=== PATIENT | female | born 1975 | race Caucasian/White ===

== ENCOUNTER 2016-05-31 19:27 | Emergency (ER) | payer OTHER ==
[~2016-05-31] VITALS: Ht 165.1 cm; Wt 80.0 kg
[~2016-05-31 19:27] MED LIST: IBUP-232 PO; LISI40TA PO; MIRT30TA PO; TRIL150T PO; ZOLO25TA PO
[2016-05-31 19:34] VITALS: BP 159/113; PULSE 91; O2SAT 95
[2016-05-31] MEDS ORDERED: SERT-129 PO (19:42)
[2016-05-31] MEDS ORDERED: MORPHINE SULFATE 4 MG/ML INJ IV PUSH ONE (19:45)
[2016-05-31] MEDS ORDERED: SODIUM CHLORID 0.9% 500 ML INJ 500 ML IV ONE (19:45)
[2016-05-31] MEDS ORDERED: SODIUM CHLORIDE 0.9% FLUSH 5 ML FLUSH IVF PRN (19:45)
[2016-05-31] MEDS ORDERED: ASPIRIN 325 MG TAB PO ONE (19:45)
[2016-05-31 19:53] LABS: BASOPHIL # 0.4 TH/MM3 (0-0.2); BASOPHIL % 2.8 % (0.0-2.0); EOSINOPHIL # 0.3 TH/MM3 (0-0.4); EOSINOPHIL % 2.2 % (0.0-4.0); HEMATOCRIT 42.9 % (35.0-46.0); HEMO FLAGS DIFF FINAL; LYMPH % 17.6 % (9.0-44.0); LYMPHOCYTE # 2.3 TH/MM3 (1.0-4.8); MEAN CORPUSCULAR HGB CONC 33.8 % (32.0-36.0); MONO % 6.8 % (0.0-8.0); NEUT % 70.6 % (16.0-70.0); PLATELET COUNT 364 TH/MM3 (150-450); RED BLOOD COUNT 4.67 MIL/MM3 (4.00-5.30); RED CELL DISTRIBUTION WIDTH 13.1 % (11.6-17.2); WHITE BLOOD COUNT 12.9 TH/MM3 (4.0-11.0)
[2016-05-31] MEDS: NITROGLYCERIN 0.4 MG SL 25 TABS/BTL SL SCH ×3 (19:54→20:12)
[2016-05-31 19:58] VITALS: BP 148/91; PULSE 96; O2SAT 99
--- NOTE | 2016-05-31 20:04 | PD ---
HPI Chief Complaint: Chest Pain Time Seen by Provider: 19:37 Travel History International Travel<30 days: No Contact w/Intl Traveler<30days: No Traveled to known affect area: No History of Present Illness HPI 41-year-old female arrives to the ER with chest pain. It's retrosternal and sharp. She states it's 10 over 10. She has bilateral upper extremity paresthesias. Dyspnea is reported. Pleuritic pain is reported. Onset occurred when she was driving her car. She reports a history of hypertension. She has no family history of early onset coronary artery disease. She has no history of diabetes or hyperlipidemia. She has been compliant with lisinopril, Trileptal, Zoloft and Remeron for her mood disorder/anxiety disorder and hypertension. She denies past surgical history. She denies recent fever. She reports a nonproductive cough. She smokes tobacco. She reports she spent the day at the park with her kids, normal activity for her. She reports minimal personal stress having taken her niece to the hospital today. She reports a history of panic attack previously however states today's presentation feels different. She reports dyspnea at rest. ON LICENSE OF [facility] Past Medical History Anxiety: Yes Depression: Yes Diminished Hearing: No Hypertension: Yes (NON COMPLIANT WITH MEDS "NO DR.") Musculoskeletal: Yes (HX OF CHRONIC BACK PAIN) Immunizations Current: Yes Influenza Vaccination: No ?: Not LMP: 05/16/2016 : 2 Para: 2 Past Surgical History Ear Surgery: Yes (TUBES) Social History Alcohol Use: No Tobacco Use: Yes (1PPD) Substance Use: No Allergies-Medications (Allergen,Severity, Reaction): Coded Allergies: No Known Allergies (Verified , 05/31/16) Reported Meds & Prescriptions Reported Meds & Active Scripts Active Azithromycin 250 Mg Tab 250 Mg PO DIRECTED Take 2 tabs (500 mg) on day 1 then 1 tab daily x 4 days. Prednisone 20 Mg Tab 40 Mg PO DAILY 4 Days Take 40 mg (2 tablets) daily for 5 days Lisinopril 40 Mg Tab 40 Mg PO DAILY Reported Sertraline (Sertraline HCl) 100 Mg Tab 100 Mg PO DAILY Mirtazapine 30 Mg Tab 30 Mg PO HS Trileptal (Oxcarbazepine) 150 Mg Tab 150 Mg PO BID Review of Systems Except as stated in HPI: all other systems reviewed are Neg General / Constitutional: No: Fever Cardiovascular: Positive: Chest Pain or Discomfort, No: Diaphoresis Respiratory: Positive: Cough, Shortness of Breath Psychiatric: No: Substance Abuse Physical Exam Narrative GENERAL: Well-nourished well-developed 41-year-old female mild distress due to pain and/or anxiety SKIN: Warm and dry. HEAD: Atraumatic. Normocephalic. EYES: Pupils equal and round. No scleral icterus. No injection or drainage. ENT: No nasal bleeding or discharge. Mucous membranes pink and moist. NECK: Trachea midline. No JVD. CARDIOVASCULAR: Tachycardia at a rate of about 95. Regular. RESPIRATORY: Minimal tachypnea. Lungs are clear bilaterally. GASTROINTESTINAL: Abdomen soft, non-tender, nondistended. Hepatic and splenic margins not palpable. MUSCULOSKELETAL: No obvious deformities. No clubbing. No cyanosis. No edema. No evidence DVT. NEUROLOGICAL: Awake and alert. No obvious cranial nerve deficits. Motor grossly within normal limits. Normal speech. PSYCHIATRIC: Mildly anxious. Cooperative. Data Data Last Documented VS Vital Signs Date Time Temp Pulse Resp B/P Pulse Ox O2 Delivery O2 Flow Rate FiO2 05/31/16 21:47 78 18 155/86 100 Room Air 05/31/16 20:38 2 05/31/16 20:29 98.6 Orders Electrocardiogram (05/31/16 19:38) Basic Metabolic Panel (Bmp) (05/31/16 19:38) Ckmb (Isoenzyme) Profile (05/31/16 19:38) Complete Blood Count With Diff (05/31/16 19:38) Magnesium (Mg) (05/31/16 19:38) Prothrombin Time / Inr (Pt) (05/31/16 19:38) Act Partial Throm Time (Ptt) (05/31/16 19:38) Troponin I (05/31/16 19:38) Chest, Single Ap (05/31/16 19:38) Ecg Monitoring (05/31/16 19:38) Bilateral Bp Monitoring (05/31/16 19:38) Iv Access Insert/Monitor (05/31/16 19:38) Oximetry (05/31/16 19:38) Oxygen Administration (05/31/16 19:38) Aspirin (Aspirin) (05/31/16 19:45) Morphine Inj (Morphine Inj) (05/31/16 19:45) Sodium Chloride 0.9% Flush (Ns Flush) (05/31/16 19:45) Nitroglycerin Sl (Nitrostat Sl) (05/31/16 19:45) Sodium Chlorid 0.9% 500 Ml Inj (Ns 500 M (05/31/16 19:45) Ct Pulmonary Angiogram (05/31/16 19:38) Potassium Chloride (Kcl) (05/31/16 20:30) Iohexol 350 Inj (Omnipaque 350 Inj) (05/31/16 21:30) Troponin I (05/31/16 21:51) Methylprednisolone So Succ Inj (Solumedr (05/31/16 22:00) Albuterol Hfa Inh (Proair Hfa Inh) (05/31/16 22:00) Labs Laboratory Tests Test 05/31/16 05/31/16 19:35 21:53 White Blood Count 12.9 TH/MM3 Red Blood Count 4.67 MIL/MM3 Hemoglobin 14.5 GM/DL Hematocrit 42.9 % Mean Corpuscular Volume 92.0 FL Mean Corpuscular Hemoglobin 31.0 PG Mean Corpuscular Hemoglobin 33.8 % Concent Red Cell Distribution Width 13.1 % Platelet Count 364 TH/MM3 Mean Platelet Volume 8.8 FL Neutrophils (%) (Auto) 70.6 % Lymphocytes (%) (Auto) 17.6 % Monocytes (%) (Auto) 6.8 % Eosinophils (%) (Auto) 2.2 % Basophils (%) (Auto) 2.8 % Neutrophils # (Auto) 9.0 TH/MM3 Lymphocytes # (Auto) 2.3 TH/MM3 Monocytes # (Auto) 0.9 TH/MM3 Eosinophils # (Auto) 0.3 TH/MM3 Basophils # (Auto) 0.4 TH/MM3 CBC Comment DIFF FINAL Differential Comment Prothrombin Time 10.5 SEC Prothromb Time International 1.0 RATIO Ratio Activated Partial 27.2 SEC Thromboplast Time Sodium Level 138 MEQ/L Potassium Level 3.1 MEQ/L Chloride Level 104 MEQ/L Carbon Dioxide Level 22.5 MEQ/L Anion Gap 12 MEQ/L Blood Urea Nitrogen 9 MG/DL Creatinine 0.79 MG/DL Estimat Glomerular Filtration 81 ML/MIN Rate Random Glucose 108 MG/DL Calcium Level 9.0 MG/DL Magnesium Level 2.0 MG/DL Total Creatine Kinase 28 U/L Troponin I LESS THAN 0.02 LESS THAN 0.02 NG/ML NG/ML MDM Medical Decision Making Medical Screen Exam Complete: Yes Emergency Medical Condition: Yes Medical Record Reviewed: Yes Differential Diagnosis NSTEMI, unstable angina, coronary vasospasm, PE, PTX, aortic dissection, pericarditis, myocarditis, endocarditis, PNA, esophageal disease, aneurysm, musculoskeletal etiologies, anxiety, cocaine/sympathomimetic abuse Narrative Course EKG reveals a sinus rhythm of 87 bpm with normal axis intervals, no ischemic injury type pattern CBC & BMP Diagram 05/31/16 19:35 Tn < 0.02 INR 1.0 Reassessment at 9:56 PM patient reports persistent shortness of breath and chest pain. Albuterol and methylprednisolone ordered. We'll discharge with Azithromycin. Potassium replenished. 2 hour repeat troponin is undetectable in this 41 yo F. No coronary calcification on CT images. She smokes however carries no significant risk factor otherwise for occlusive coronary disease. In this scenario discharge home with a plan for outpatient follow-up with provocative testing as needed is considered not unreasonable. We discussed the ground glass opacity in the right lung on CT. The patient understands that could be a malignancy and that a repeat CT in 3 months is required in order to rule out cancer. She has verbalized agreement to obtain a repeat CT chest in 3 months. Diagnosis Primary Impression: Chest pain Qualified Code: R07.9 - Chest pain, unspecified type Additional Impressions: Dyspnea Qualified Code: R06.09 - Dyspnea on exertion Ground glass opacity present on imaging of lung Hypokalemia Referrals: OBTAIN REPEAT CHEST CT IN 3 MONTHS call for appointment Additional Instructions: You have a choice when it comes to health care, and we are glad that you chose [facility]. Hopefully, we have met your expectations on today's visit. You are welcome to return to [facility] at any time, as we are committed to meeting the health care needs of our community. Med/Other Pt SpecificInfo: Prescription(s) given Scripts Azithromycin 250 Mg [id number] Mg PO DIRECTED #6 TAB Ref 0 Take 2 tabs (500 mg) on day 1 then 1 tab daily x 4 days. Prov:Twin Jansen MD 05/31/16 Prednisone 20 Mg Tab40 Mg PO DAILY 4 Days Ref 0 Take 40 mg (2 tablets) daily for 5 days Prov:Twin Jansen MD 05/31/16 Disposition: 01 DISCHARGE HOME Condition: Stable Twin Jansen MD May 31, 2016 20:04
[2016-05-31 20:08] LABS: CHLORIDE 104 MEQ/L (98-107); POTASSIUM 3.1 MEQ/L (3.5-5.1); SODIUM (NA) 138 MEQ/L (136-145)
[2016-05-31 20:10] VITALS: BP 145/85; PULSE 85; O2SAT 96
[2016-05-31 20:12] LABS: ANION GAP 12 MEQ/L (5-15); BICARBONATE 22.5 MEQ/L (21.0-32.0); BLOOD UREA NITROGEN 9 MG/DL (7-18)
--- NOTE | 2016-05-31 20:12 | RADHPO ---
EXAM DATE/TIME: 05/31/2016 19:58 [facility] COMPARISON: CHEST SINGLE AP, May 10, 2015, 22:51. INDICATIONS : Shortness of breath. MEDICAL HISTORY : Hypertension. SURGICAL HISTORY : None. ENCOUNTER: Initial ACUITY: 1 day PAIN SCORE: 0/10 LOCATION: Bilateral chest FINDINGS: A single view of the chest demonstrates the lungs to be symmetrically aerated without evidence of mas s, infiltrate or effusion. The cardiomediastinal contours are unremarkable. Osseous structures are intact. CONCLUSION: No evidence of acute cardiopulmonary disease. Babar Bonds MD on May 31, 2016 at 20:10 Board Certified Radiologist. This report was verified electronically.
[2016-05-31 20:14] LABS: APTT (PATIENT) 27.2 SEC (24.3-30.1); PROTHROMBIN TIME - PATIENT 10.5 SEC (9.8-11.6)
[2016-05-31 20:15] LABS: GLOMERULAR FILTRATION RATE 81 ML/MIN (>89)
[2016-05-31 20:29] VITALS: TEMP 98.6
[2016-05-31] MEDS ORDERED: POTASSIUM CHLORIDE 20 MEQ CONTROLLED RELEASE TAB PO ONE (20:30)
[2016-05-31 20:33] LABS: CREATINE KINASE 28 U/L (26-192)
[2016-05-31 20:38] VITALS: BP 155/91; PULSE 83; RESP 16; O2SAT 99
[2016-05-31] MEDS ORDERED: IOHEXOL 350 MG/ML 10 ML VIAL (for RAD DIAG) IV ONE (21:30)
--- NOTE | 2016-05-31 21:39 | RADHPO ---
EXAM DATE/TIME: 05/31/2016 21:11 [facility] COMPARISON: No previous studies available for comparison. INDICATIONS : Left chest pain. Evaluate for embolism. IV CONTRAST: 75 cc Omnipaque 350 (iohexol) IV RADIATION DOSE: 17.86 CTDIvol (mGy) MEDICAL HISTORY : Hypertension. SURGICAL HISTORY : None. ENCOUNTER: Initial ACUITY: 1 day PAIN SCALE: 8/10 LOCATION: Left chest TECHNIQUE: Volumetric scanning of the chest was performed using a pulmonary embolism protocol MIP images were re constructed. Using automated exposure control and adjustment of the mA and/or kV according to patien t size, radiation dose was kept as low as reasonably achievable to obtain optimal diagnostic quality images. FINDINGS: PULMONARY ARTERIES: No filling defects are seen in the pulmonary arteries through the segmental level. LUNGS: 3 cm focal infiltrates seen in the anterior segment of the right upper lobe. Lungs are otherwise chasity r. PLEURAE: There is no pleural thickening or pleural effusion. MEDIASTINUM: There is good visualization of the great vessels of the middle mediastinum. No evidence of mediastin al or hilar adenopathy/mass. MUSCULOSKELETAL: Within normal limits for patient age. MISCELLANEOUS: The visualized upper abdominal organs demonstrate no acute abnormality. CONCLUSION: 1. No pulmonary embolus demonstrated. 2. Focal groundglass infiltrate of the right upper lobe, nonspecific but most likely infectious or in flammatory. A followup noncontrast chest CT is recommended in 4-6 months to confirm resolution. Babar Bonds MD on May 31, 2016 at 21:36 Board Certified Radiologist. This report was verified electronically.
[2016-05-31 21:47] VITALS: BP 155/86; PULSE 78; RESP 18; O2SAT 100
[2016-05-31] MEDS ORDERED: PRED20 PO (22:00)
[2016-05-31] MEDS ORDERED: AZIT250T3 PO (22:00)
[2016-05-31] MEDS ORDERED: methylPREDNISolone SOD SUCC 125 MG/2 ML VIAL IV PUSH ONE (22:00)
[2016-05-31] MEDS ORDERED: ALBUTEROL SULFATE 90 MCG/ACT HFA 8 GM INHALER INH ONE (22:00)
--- NOTE | 2016-06-01 15:50 | EKG ---
Date Performed: 05/31/2016 Time Performed: 19:30:46 PTAGE: 41 years EKG: Sinus rhythm . Normal ECG PREVIOUS TRACING : 05/10/2015 22.59 Compared to prior tracing no significant change DOCTOR: Tiffanie Ricardo Interpretating Date/Time 06/01/2016 15:48:54
[2016-07-23] MEDS ORDERED: LISI40TA PO (12:40)
[2016-08-27] MEDS ORDERED: LISI40TA PO (11:14)
[2016-08-27] MEDS ORDERED: AMLO5TAB2 PO (11:14)
== END 2016-05-31 22:44 | disposition home or self-care (01) ==
LOC: PHED 19:27
DX: R07.9 Chest pain, unspecified (principal); R06.09 Other forms of dyspnea; E87.6 Hypokalemia
CPT/HCPCS: 71010; 71275; 80048; 82550; 83735; 84484; 85025; 85610; 85730; 93005; 96361; 96374; 96375; 99285; J2270; J2930; J7040; Q9967

== ENCOUNTER 2016-06-12 15:30 | Emergency (ER) | payer OTHER ==
[~2016-06-12 15:30] MED LIST changes: +AZIT250T3 PO; -IBUP-232 PO; +PRED20 PO; +SERT-129 PO; -ZOLO25TA PO
[2016-06-12 15:31] VITALS: BP 134/100; PULSE 97; RESP 18; TEMP 98.2; O2SAT 99
[2016-07-23] MEDS ORDERED: LISI40TA PO (12:40)
[2016-08-27] MEDS ORDERED: AMLO5TAB2 PO (11:14)
[2016-08-27] MEDS ORDERED: LISI40TA PO (11:14)
== END 2016-06-12 18:06 | disposition left against medical advice (07) ==
LOC: NETRI 15:30
DX: Z03.89 Encounter for observation for other suspected diseases and conditions ruled out (principal)
CPT/HCPCS: 99281

== ENCOUNTER 2016-07-10 10:42 | Emergency (ER) | payer OTHER ==
[~2016-07-10] VITALS: Ht 165.1 cm; Wt 75.2 kg
[2016-07-10 10:44] VITALS: BP 173/121; PULSE 74; RESP 18; TEMP 98.2; O2SAT 97
[2016-07-10] MEDS ORDERED: ZOLO25TA PO (10:54)
[2016-07-10] MEDS ORDERED: [UNRECOGNIZED DRUG - OTHER] (10:54)
--- NOTE | 2016-07-10 11:00 | PD ---
HPI Chief Complaint: Musculoskeletal Complaint Time Seen by Provider: 10:56 Travel History International Travel<30 days: No Contact w/Intl Traveler<30days: No Traveled to known affect area: No History of Present Illness HPI The patient is a 41-year-old female who presents emergency department for right hand pain. The patient states she was aggravated 2 days ago punched a wall. She now complains of pain located over the fourth and fifth metacarpal of the right hand. The patient is right-hand dominant. The pain is worse with movement, slightly alleviated at rest. She denies any difficulty using the right upper extremity, is able flex and extend the digits of the right hand with minimal pain. She denies any history of previous fracture to the affected area. She denies any associated numbness, tingling, or paresthesias to the right hand. PFSH Past Medical History Anxiety: Yes Depression: Yes Cardiovascular Problems: Yes (HTN) Diminished Hearing: No Hypertension: Yes (NON COMPLIANT WITH MEDS "NO DR.") Musculoskeletal: Yes (HX OF CHRONIC BACK PAIN) Immunizations Current: Yes Tetanus Vaccination: Unknown ?: Not LMP: NOW : 2 Para: 2 Past Surgical History Surgical History: No Previous Surgery Ear Surgery: Yes (TUBES) Social History Alcohol Use: Yes (OCC) Tobacco Use: Yes (1PPD) Substance Use: No Allergies-Medications (Allergen,Severity, Reaction): Coded Allergies: No Known Allergies (Verified , 07/10/16) Reported Meds & Prescriptions Reported Meds & Active Scripts Active Lisinopril 40 Mg Tab 40 Mg PO DAILY Reported [Remuron] Zoloft (Sertraline HCl) 25 Mg Tab 25 Mg PO DAILY Mirtazapine 30 Mg Tab 30 Mg PO HS Trileptal (Oxcarbazepine) 150 Mg Tab 150 Mg PO BID Review of Systems Except as stated in HPI: all other systems reviewed are Neg Musculoskeletal: Positive: Edema, Pain Skin: No Other (denies any laceration of the affected area) Neurologic: No: Paresthesia, Sensory Disturbance Physical Exam Narrative GENERAL: Awake, alert, 41-year-old female who appears her stated age and is in no acute respiratory distress. SKIN: Focused skin assessment warm/dry. HEAD: Atraumatic. Normocephalic. EYES: No injection or drainage. MUSCULOSKELETAL: The patient has mild edema located over the fourth and fifth metacarpal right hand with ecchymosis noted. The patient is able flex and extend at the MCP, PIP, DIP of digits 2 through 5. The patient is able flex and extend the right wrist as well as supinate and pronate. Patient has full flexion and extension her right elbow. Mild tenderness over the distal one half of the fourth and fifth metacarpal. Positive right radial pulse. NEUROLOGICAL: Awake and alert. No obvious cranial nerve deficits. Motor grossly within normal limits. Normal speech. Sensation is intact to the radial , median, and ulnar distribution of the right hand. PSYCHIATRIC: Appropriate mood and affect; insight and judgment normal. Data Data Last Documented VS Vital Signs Date Time Temp Pulse Resp B/P Pulse Ox O2 Delivery O2 Flow Rate FiO2 07/10/16 10:44 98.2 74 18 173/121 97 Orders Hand, Limited (2vws) (07/10/16 ) [facility] Medical Decision Making Medical Screen Exam Complete: Yes Emergency Medical Condition: Yes Medical Record Reviewed: Yes Interpretation(s) X-ray of the right hand reveals limited 2 view study demonstrating soft tissue swelling but no visualized fracture. Differential Diagnosis Differential diagnosis includes fracture, contusion, dislocation, hematoma. Narrative Course X-ray of the right hand was obtained. X-rays negative for fracture, there is soft tissue swelling. The patient is advised elevate, ice, and ibuprofen and/ or Tylenol as needed for pain. Diagnosis Primary Impression: Contusion of right hand Qualified Code: S60.221A - Contusion of right hand, initial encounter Patient Instructions: General Instructions Additional Instructions: Elevate, ice, activity as tolerated. Ibuprofen and/or Tylenol as needed for pain. Follow-up with her primary physician. Follow-up with hand surgery/ orthopedics if symptoms persist. Med/Other Pt SpecificInfo: No Change to Meds Disposition: 01 DISCHARGE HOME Condition: Stable Emigdio Watson MD Jul 10, 2016 11:00
--- NOTE | 2016-07-10 11:20 | RADHPO ---
EXAM DATE/TIME: 07/10/2016 10:55 [facility] COMPARISON: No previous studies available for comparison. INDICATIONS : Right hand pain; hand injury from punching. MEDICAL HISTORY : None. SURGICAL HISTORY : None. ENCOUNTER: Initial ACUITY: 2 days PAIN SCORE: 10/10 LOCATION: Right 4th & 5th digit; hand. FINDINGS: Limited AP and lateral views of the right hand were obtained and not a standard 3 view trauma series limiting the sensitivity. There is soft tissue swelling over the dorsum of the hand with no acute fra cture or malalignment. The metacarpals and phalanges are projected over each other on the lateral jax dy limiting visualization. CONCLUSION: Limited two-view study demonstrating soft tissue swelling with no visualized fracture . Rocco Tinsley MD on July 10, 2016 at 11:12 Board Certified Radiologist. This report was verified electronically.
[2016-07-23] MEDS ORDERED: LISI40TA PO (12:40)
[2016-08-27] MEDS ORDERED: LISI40TA PO (11:14)
[2016-08-27] MEDS ORDERED: AMLO5TAB2 PO (11:14)
== END 2016-07-10 11:45 | disposition home or self-care (01) ==
LOC: PHEFT 10:42
DX: S60.221A Contusion of right hand, initial encounter (principal); I10 Essential (primary) hypertension; Z91.14 Patient's other noncompliance with medication regimen; G89.29 Other chronic pain; F17.210 Nicotine dependence, cigarettes, uncomplicated; W22.8XXA Striking against or struck by other objects, initial encounter; Y93.89 Activity, other specified; Y92.9 Unspecified place or not applicable
CPT/HCPCS: 73120; 99283

== ENCOUNTER 2016-11-05 12:28 | Emergency (ER) | payer OTHER ==
[~2016-11-05] VITALS: Ht 165.1 cm; Wt 71.0 kg
[~2016-11-05 12:28] MED LIST changes: +AMLO5TAB2 PO; -AZIT250T3 PO; -PRED20 PO; -SERT-129 PO; +ZOLO25TA PO; +[UNRECOGNIZED DRUG - OTHER]
[2016-11-05 12:44] VITALS: BP 147/83; PULSE 97; RESP 16; TEMP 98.3; O2SAT 98
[2016-11-05] MEDS ORDERED: ZYPR10TA PO (13:03)
[2016-11-05] MEDS ORDERED: VIST25CA PO (13:04)
[2016-11-05] MEDS ORDERED: FLUO40CA PO (13:04)
[2016-11-05] MEDS ORDERED: LIDOCAINE HCL 1% 50 ML VIAL INFIL ONE (13:15)
[2016-11-05] MEDS ORDERED: BUPIVACAINE HCL PF 0.5% 10 ML VIAL INFIL ONE (13:15)
--- NOTE | 2016-11-05 13:18 | PD ---
HPI Chief Complaint: Skin Problem Time Seen by Provider: 13:06 Travel History International Travel<30 days: No Contact w/Intl Traveler<30days: No Traveled to known affect area: No History of Present Illness HPI 41-year-old female presents to the emergency room for evaluation of left second digit finger pain and swelling for the past 2 days. No trauma or injury. Patient bites her nails and believes she may have infected her finger. States it has progressively gotten worse. Pain is severe with any palpation of the distal finger. Denies streaking, fever, chills, nausea, and vomiting. PFSH Past Medical History Anxiety: Yes Depression: Yes Cardiovascular Problems: Yes (HTN) Diminished Hearing: No Hypertension: Yes Musculoskeletal: Yes (HX OF CHRONIC BACK PAIN) Immunizations Current: Yes Influenza Vaccination: No ?: Not : 2 Para: 2 Past Surgical History Ear Surgery: Yes (TUBES) Social History Alcohol Use: Yes (COUPLE TIMES PER MONTH) Tobacco Use: Yes (1PPD) Substance Use: No Allergies-Medications (Allergen,Severity, Reaction): Coded Allergies: No Known Allergies (Verified , 11/05/16) Reported Meds & Prescriptions Reported Meds & Active Scripts Active Amlodipine (Amlodipine Besylate) 5 Mg Tab 5 Mg PO DAILY Lisinopril 40 Mg Tab 40 Mg PO DAILY Reported Vistaril (Hydroxyzine Pamoate) 25 Mg Cap 25 Mg PO Q6H PRN Fluoxetine (Fluoxetine HCl) 40 Mg Cap 40 Cap PO DAILY Zyprexa (Olanzapine) 10 Mg Tab 10 Mg PO HS Review of Systems Except as stated in HPI: all other systems reviewed are Neg Physical Exam Narrative GENERAL: Well-nourished, well-developed female in no acute distress. Afebrile. Ambulatory. SKIN: Focused skin assessment warm/dry. There is an indurated area in the left distal second finger which measures about 1 cm in diameter. It is fluctuant but there is no pointing or drainage. There is a zone of inflammation around it but no lymphangitis. HEAD: Normocephalic. EYES: No scleral icterus. No injection or drainage. NECK: Supple, trachea midline. No JVD or lymphadenopathy. CARDIOVASCULAR: Regular rate and rhythm without murmurs, gallops, or rubs. RESPIRATORY: Breath sounds equal bilaterally. No accessory muscle use. MUSCULOSKELETAL: No cyanosis. Moderate edema of the right second finger. Limited range of motion secondary to pain and swelling. Less than 2 second capillary refill distally. Data Data Last Documented VS Vital Signs Date Time Temp Pulse Resp B/P (MAP) Pulse Ox O2 Delivery O2 Flow Rate FiO2 11/05/16 12:44 98.3 97 16 147/83 (104) 98 Orders Orders Bupivacaine Pf 0.5% Inj (Marcaine Pf 0.5 (11/05/16 13:15) Lidocaine 1% Inj (50 Ml) (Xylocaine 1% I (11/05/16 13:15) MDM Medical Decision Making Medical Screen Exam Complete: Yes Emergency Medical Condition: Yes Medical Record Reviewed: Yes Differential Diagnosis Paronychia, contusion, fracture Narrative Course 41-year-old female presents to the emergency room for evaluation of left second digit finger pain and swelling the past 2 days. No trauma or injury. Physical exam reveals paronychia of the left second distal digit. Mild fluctuance. No lymphangitis. Incision and drainage was performed and patient discharged with prescription for Bactrim. Told to follow-up the primary care physician or return for worsening symptoms. She understands and agrees to plan. Procedures Procedure Narrative INCISION AND DRAINAGE OF ABSCESS: The area was prepped and was sterilely draped. Digital block was performed using 1% lidocaine and 0.5% bupivacaine with a total number 5 mL. A number 11 scalpel was used to make a 1 cm incision across the area of the abscess. The abscess was drained, complex loculations were broken down, and irrigated with normal saline. Cultures were obtained. Sterile dressing applied. Diagnosis Primary Impression: Paronychia of left index finger Referrals: Primary Care Physician Additional Instructions: Rest and drink plenty of fluids. Take Bactrim as directed, until gone. Follow up with a primary care physician. Return to emergency room for worsening symptoms, as discussed. Disposition: 01 DISCHARGE HOME Condition: Stable Jaci Sykes Nov 05, 2016 13:18
[2016-11-05] MEDS ORDERED: BACT800T5 PO (13:26)
== END 2016-11-05 13:39 | disposition home or self-care (01) ==
LOC: PHEFT 12:28
DX: L03.012 Cellulitis of left finger (principal); I10 Essential (primary) hypertension; F17.200 Nicotine dependence, unspecified, uncomplicated
CPT/HCPCS: 10060

== ENCOUNTER 2017-01-14 10:56 | Emergency (ER) | payer OTHER ==
[~2017-01-14] VITALS: Ht 165.1 cm; Wt 71.0 kg
[~2017-01-14 10:56] MED LIST changes: +BACT800T5 PO; +FLUO40CA PO; -MIRT30TA PO; -TRIL150T PO; +VIST25CA PO; -ZOLO25TA PO; +ZYPR10TA PO; -[UNRECOGNIZED DRUG - OTHER]
[2017-01-14 10:59] VITALS: BP 155/93; PULSE 93; RESP 15; TEMP 97.6; O2SAT 96
--- NOTE | 2017-01-14 11:10 | PD ---
Physical Exam Date Seen by Provider: Jan 14, 2017 Time Seen by Provider: 11:07 Narrative 41-year-old white female presents to emergency department with a one-week history of cough congestion severe earache and pleuritic chest wall pain with coughing. Positive chills but no fevers. Symptoms are moderate. Patient has a 10/10 pain in her left ear. VIital signs reviewed. Pt. waiting for bed placement. Data Data Last Documented VS Vital Signs Date Time Temp Pulse Resp B/P (MAP) Pulse Ox O2 Delivery O2 Flow Rate FiO2 01/14/17 10:59 97.6 93 15 155/93 ([phone] 96 MDM Medical Record Reviewed: No Supervised Visit with KOURTNEY: Jos Duvall Jan 14, 2017 11:10
[2017-01-14] MEDS ORDERED: predniSONE 20 MG TAB PO ONE (11:30)
[2017-01-14] MEDS ORDERED: RESP: ALBUTEROL 2.5 MG/3 ML NEB (SCH) INH ONE (11:30)
[2017-01-14] MEDS ORDERED: TRAZ50TA12 PO (11:40)
[2017-01-14] MEDS ORDERED: BENZ100 PO (12:01)
[2017-01-14] MEDS ORDERED: VENTAER INH (12:01)
[2017-01-14] MEDS ORDERED: AZIT500T2 PO (12:01)
[2017-01-14] MEDS ORDERED: PRED-503 PO (12:01)
--- NOTE | 2017-01-14 12:01 | PD ---
HPI Chief Complaint: ENT Complaint Time Seen by Provider: 11:21 Travel History International Travel<30 days: No Contact w/Intl Traveler<30days: No Traveled to known affect area: No History of Present Illness HPI 41-year-old female presents to the emergency Department with complaint of nasal congestion, cough, left ear pain 1 week. Reports chest tightness, shortness of breath, intermittent wheezing. Reports tobacco use. Denies sore throat, fevers, nausea, vomiting, abdominal pain. Reports chills. Denies history of asthma or COPD. Reports history of bronchitis and having to use an inhaler. Has been taking [id number] medications for symptom management. Symptoms are moderate in severity. Decreased prescribed ear pain is that earache. Rates pain 12/25. No known aggravating factors. Has no other medical complaints. No known allergies. No other modifying factors or associated signs and symptoms. PFSH Past Medical History Anxiety: Yes Depression: Yes Cardiovascular Problems: Yes (HTN) Diminished Hearing: No Hypertension: Yes Musculoskeletal: Yes (HX OF CHRONIC BACK PAIN) Immunizations Current: Yes : 2 Para: 2 Past Surgical History Ear Surgery: Yes (TUBES) Social History Alcohol Use: Yes (COUPLE TIMES PER MONTH) Tobacco Use: Yes (1PPD) Substance Use: No Allergies-Medications (Allergen,Severity, Reaction): Coded Allergies: No Known Allergies (Verified Adverse Reaction, Unknown, 01/14/17) Reported Meds & Prescriptions Reported Meds & Active Scripts Active Azithromycin 500 Mg Tab 500 Mg PO DAILY Tessalon Perles (Benzonatate) 100 Mg Cap 100 Mg PO TID PRN 3 Days Deltasone (Prednisone) 20 Mg Tab 40 Mg PO DAILY 4 Days start 01/15/2017 Ventolin Hfa 18 GM Inh (Albuterol Sulfate) 90 Mcg/Act Aer 2 Puff INH Q4-6H PRN Amlodipine (Amlodipine Besylate) 5 Mg Tab 5 Mg PO DAILY Lisinopril 40 Mg Tab 40 Mg PO DAILY Reported Trazodone (Trazodone HCl) 50 Mg Tab 50 Mg PO HS Vistaril (Hydroxyzine Pamoate) 25 Mg Cap 25 Mg PO Q6H PRN Fluoxetine (Fluoxetine HCl) 40 Mg Cap 40 Cap PO DAILY Zyprexa (Olanzapine) 10 Mg Tab 10 Mg PO HS Review of Systems Except as stated in HPI: all other systems reviewed are Neg Physical Exam Narrative GENERAL: Well-nourished, well-developed female patient, in no acute distress; afebrile, nontoxic-appearing SKIN: Warm and dry. No rash. HEAD: Atraumatic. Normocephalic. EYES: Pupils equal and round. No scleral icterus. No injection or drainage. ENT: Mucosa pink and moist. No erythema or exudates. No uvular edema. No uvular , palatal, or tonsillar deviation. Airway patent. EARS: Bilateral pinnae and external canals appear within normal limits. Bilateral tympanic membranes without erythema, dullness or perforation. NECK: Trachea midline. No lymphadenopathy. CARDIOVASCULAR: Regular rate and rhythm. No murmur appreciated. RESPIRATORY: No accessory muscle use. Clear to auscultation. Breath sounds equal bilaterally. No retractions or tachypnea. GASTROINTESTINAL: Abdomen soft, non-tender, nondistended. Hepatic and splenic margins not palpable. Bowel sounds are active 4 quadrants. MUSCULOSKELETAL: No obvious deformities. No clubbing. No cyanosis. No edema. NEUROLOGICAL: Awake and alert. Oriented 3. No obvious cranial nerve deficits. Motor grossly within normal limits. Normal speech. Moves all extremities. 5/5 strength to all extremities. PSYCHIATRIC: Appropriate mood and affect; insight and judgment normal. Data Data Last Documented VS Vital Signs Date Time Temp Pulse Resp B/P (MAP) Pulse Ox O2 Delivery O2 Flow Rate FiO2 01/14/17 10:59 97.6 93 15 155/93 (113) 96 Orders Orders Prednisone (Deltasone) (01/14/17 11:30) Albuterol Neb (Albuterol Neb) (01/14/17 11:30) [facility] Medical Decision Making Medical Screen Exam Complete: Yes Emergency Medical Condition: Yes Medical Record Reviewed: Yes Differential Diagnosis Upper respiratory infection, otitis media, otitis externa, bronchitis Narrative Course 41-year-old female physical examination consistent with upper respiratory infection and bronchitis. He is afebrile and nontoxic-appearing. She denies fever or vomiting. Lungs are clear and equal throughout. The patient is in no acute distress. No retractions or tachypnea. She reports chest tightness and shortness of breath. The patient will be treated with an albuterol treatment and prednisone in the ER. 121: Patient reports improvement in symptoms. Denies chest tightness or shortness of breath. Albuterol inhaler, prednisone, azithromycin prescribed for home. Instructed patient to follow up with primary care provider. Patient verbalizes understanding and agreement with treatment plan. Patient is medically cleared and stable for discharge. Discussed reasons to return to the emergency department. Patient agrees with treatment plan. The patients vital signs are stable and the patient is stable for outpatient follow-up and treatment. Patient discharged home, stable and in no acute distress. Diagnosis Primary Impression: Upper respiratory infection Qualified Codes: J06.9 - Acute upper respiratory infection, unspecified Additional Impression: Bronchitis Referrals: [facility] Primary Care Physician Patient Instructions: Acute Bronchitis (ED), General Instructions, Upper Respiratory Infection (ED) Departure Forms: Tests/Procedures, Work Release Enter return to work date: Jan 16, 2017 Additional Instructions: Use Albuterol inhaler as prescribed Take oral steroids as prescribed and complete full course Use Tessalon Perles as prescribed to decrease coughing spasms [id number] decongestants or antihistamines as directed and as needed for symptom management Your cough can last 4-6 weeks Drink plenty of fluids to prevent dehydration Use hot air humidifier to decrease cough exacerbation Turn off ceiling fans and sleep with head of bed elevated Avoid triggers such as second hand smoke, dust, known allergens Follow-up with your primary care provider Return to the emergency department immediately with worsening of symptoms Med/Other Pt SpecificInfo: Prescription(s) given Scripts Azithromycin (Azithromycin) 500 Mg Tab 500 MG PO DAILY for Infection, #5 TAB 0 Refills Prov: Rachael BurrellP 01/14/17 Benzonatate (Tessalon Perles) 100 Mg Cap 100 MG PO TID Y for COUGH for 3 Days, CAP 0 Refills Prov: Rachael BurrellP 01/14/17 Prednisone (Deltasone) 20 Mg Tab 40 MG PO DAILY for 4 Days, #8 TAB 0 Refills start 01/15/2017 Prov: Rachael BurrellP 01/14/17 Albuterol 18 GM Inh (Ventolin Hfa 18 GM Inh) 90 Mcg/Act Aer 2 PUFF INH Q4-6H Y for SOB/WHEEZING, #1 INHALER 0 Refills Prov: Rachael BurrellP 01/14/17 Disposition: 01 DISCHARGE HOME Condition: Stable Rachael Burrell Jan 14, 2017 12:01
== END 2017-01-14 12:34 | disposition home or self-care (01) ==
LOC: NEPK 10:56
DX: J06.9 Acute upper respiratory infection, unspecified (principal); J40 Bronchitis, not specified as acute or chronic; F41.9 Anxiety disorder, unspecified; F32.9 Major depressive disorder, single episode, unspecified; I10 Essential (primary) hypertension; F17.200 Nicotine dependence, unspecified, uncomplicated; Z79.899 Other long term (current) drug therapy
CPT/HCPCS: 94664; 99284; J7512; J7613